=== PATIENT | female | born 1995 | race Caucasian/White ===

== ENCOUNTER 2020-10-05 10:22 | Emergency (ER) | payer OTHER, MEDICAID ==
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
[2020-10-05] MEDS ORDERED: Orphenadrine 60 MG/2 ML Inj IM ONE (16:10)
[2020-10-05] MEDS ORDERED: Ketorolac 30 MG/ML SDV IM ONE (16:10)
== END 2020-10-05 16:40 | disposition home or self-care (01) ==
LOC: DL.ED 10:22
DX: S16.1XXA Strain of muscle, fascia and tendon at neck level, initial encounter (principal); V89.2XXA Person injured in unspecified motor-vehicle accident, traffic, initial encounter
CPT/HCPCS: 72125; 81025; 96372; 99283; 99284-25; J1885; J2360